=== PATIENT | female | born 1995 | race Caucasian/White ===

== ENCOUNTER 2016-09-22 19:16 | Emergency (ER) | payer MEDICAID, OTHER | END 2016-09-22 21:08 | disposition home or self-care (01) | LOC: ED 19:16 | DX: J11.1 Influenza due to unidentified influenza virus with other respiratory manifestations (principal); M32.9 Systemic lupus erythematosus, unspecified; F31.9 Bipolar disorder, unspecified; F41.0 Panic disorder [episodic paroxysmal anxiety] ==